=== PATIENT | male | born 1945 | race Caucasian/White ===

== ENCOUNTER 2017-05-12 09:49 | Emergency (ER) | payer MEDICARE ==
[~2017-05-12] VITALS: Ht 180.3 cm; Wt 101.0 kg
[~2017-05-12 09:49] MED LIST: MEDDOSEPAK PO; PROAIR HFA IN; ZITHROMAX250 MG PO
[2017-05-12] MEDS ORDERED: COZAAR50 MG PO (10:00)
[2017-05-12] MEDS ORDERED: OMEPRAZOLE20 M2 PO (10:00)
[2017-05-12] MEDS ORDERED: BAYER ASPIRIN E81 MG PO (10:01)
[2017-05-12 10:15] VITALS: BP 145/82
[2017-05-12] MEDS ORDERED: LOTRISONE CREAM15 GM EX (10:16)
== END 2017-05-12 10:25 | disposition home or self-care (01) ==
LOC: ED 09:49
DX: B36.8 Other specified superficial mycoses (principal)

== ENCOUNTER 2019-05-21 | Emergency (ER) | payer MEDICARE ==
[~2019-05-21] MED LIST changes: +BAYER ASPIRIN E81 MG PO; +COZAAR50 MG PO; +LOTRISONE CREAM15 GM EX; +OMEPRAZOLE20 M2 PO
[2019-05-21] MEDS ORDERED: NORVASC5 M1 PO (09:48)
[2019-05-21] MEDS ORDERED: ADVAIR DISK1 INH ×2 (09:48→09:51)
[2019-05-21] MEDS ORDERED: BENICAR40 MG PO (09:49)
[2019-05-21] MEDS ORDERED: METOPROL TAR25 MG PO (09:49)
[2019-05-21 10:40] LABS: HEMATOCRIT 46.9 % (39.0-50.0); HEMOGLOBIN 15.2 g/dl (14.0-18.0); IMMATURE GRANULOCYTES 0.6 % (0.0-5.0); MEAN CELL VOLUME 85.4 fL CALC (80.0-100.0); MEAN CORPUSCULAR HGB 27.7 pG CALC (26.0-32.0); MEAN CORPUSCULAR HGB CONC 32.4 g/dL CAL (32.0-36.0); NEUT# 7.82 thou/uL (1.82-7.42); RED BLOOD COUNT 5.49 mill/uL (4.70-6.10); RED CELL DISTRI WIDTH 12.9 % (11.5-15.5)
== END 2019-05-21 11:25 | disposition home or self-care (01) ==
PROVIDERS: Family Medicine
DX: B37.0 Candidal stomatitis (principal); B37.81 Candidal esophagitis

== ENCOUNTER 2024-05-06 13:21 | Emergency (ER) | payer MEDICARE ==
[2024-05-06] VITALS (7 sets, daily range): BP systolic 130–145; BP diastolic 76–93
[~2024-05-06] VITALS: Ht 180.3 cm; Wt 97.0 kg
[~2024-05-06 13:21] MED LIST changes: +ADVAIR DISK1 INH; +BENICAR40 MG PO; +METOPROL TAR25 MG PO; +NORVASC5 M1 PO
[2024-05-06 14:12] LABS: BASO% 1.1 % (0-3); EOS% 3.7 % (0-8); HEMATOCRIT 49.7 % (39.0-50.0); HEMOGLOBIN 16.3 g/dl (14.0-18.0); IMMATURE GRANULOCYTES 0.1 % (0.0-5.0); LYMPH% 19.1 % (15-41); MEAN CELL VOLUME 88.9 fL CALC (80.0-100.0); MEAN CORPUSCULAR HGB 29.2 pG CALC (26.0-32.0); MEAN CORPUSCULAR HGB CONC 32.8 g/dL CAL (32.0-36.0); MONO% 8.3 % (2-13); NEUT# 5.63 thou/uL (1.82-7.42); NEUT% 67.7 % (42-76); RED BLOOD COUNT 5.59 mill/uL (4.70-6.10)
[2024-05-06 14:24] LABS: ALBUMIN 4.6 g/dL (3.2-5.0); ALKALINE PHOSPHATASE 71 u/l (38-126); ANION GAP 14 (6-22 (CALC)); BILIRUBIN, TOTAL 0.7 mg/dL (0.2-1.3); BUN 18 mg/dL (8-23); BUN/CREATININE RATIO 10 (12-20 (CALC)); CARBON DIOXIDE 23 mmol/l (22-30); CHLORIDE 107 mmol/l (95-108); CREATININE 1.8 mg/dL (0.7-1.3); ESTIMATED GFR 38 ML/MIN (>=90 (CALC)); LIPASE 137 u/l (23-300); POTASSIUM 4.7 mmol/l (3.5-5.1); SGOT/AST 33 u/l (19-48); SODIUM 139 mmol/l (137-146); TOTAL PROTEIN 7.3 g/dL (6.3-8.2)
[2024-05-06] MEDS ORDERED: MEDDOSEPAK PO (16:59)
[2024-05-06] MEDS ORDERED: METHOCARBAMOL500 MG PO (16:59)
== END 2024-05-06 17:15 | disposition home or self-care (01) ==
LOC: ED 13:21
PROVIDERS: Nurse Practitioner
DX: S46.912A Strain of unspecified muscle, fascia and tendon at shoulder and upper arm level, left arm, initial encounter (principal); X50.3XXA Overexertion from repetitive movements, initial encounter; Y93.89 Activity, other specified; R07.9 Chest pain, unspecified